=== PATIENT | male | born 1970 | race Caucasian/White ===

== ENCOUNTER 2016-11-09 18:16 | Emergency (ER) | payer OTHER ==
[~2016-11-09] VITALS: Ht 177.8 cm; Wt 80.3 kg
[2016-11-09 19:30] LABS: HEMATOCRIT 47.5 % (38.0-50.0); MCH 28.9 PG (29.0-34.0); MCHC 33.1 G/DL (30.0-36.0); MCV 87.5 FL (86-99); MEAN PLAT.VOLUME 9.8 uM^3 (9.0-12.4); PLATELET COUNT 249 K/uL (156-360); RBC DIS.WIDTH-CV 12.3 % (11.8-14.6); RBC DIS.WIDTH-SD 39.8 % (39-53); RED BLOOD COUNT 5.43 M/uL (4.00-5.50); WHITE BLOOD COUNT 7.5 K/uL (4.1-10.2)
[2016-11-09 19:38] LABS: CHLORIDE 105 mEq/L (99-109); POTASSIUM 4.2 mEq/L (3.7-5.4); SODIUM 141 mEq/L (136-147)
[2016-11-09 19:40] LABS: GLUCOSE 97 mg/dL (70-99)
[2016-11-09 19:41] LABS: ANION GAP 9 MEQ/L (2-14)
[2016-11-09 19:42] LABS: TOTAL BILIRUBIN 0.4 mg/dL (0.0-1.0)
[2016-11-09 19:43] LABS: SERUM ETHYL ALCOHOL < 10 mg/dL
[2016-11-09 19:44] LABS: ALKALINE PHOSPHATASE 48 IU/L (3-129); GFR ESTIMATE (CALCULATED) > 59 mL/min/
[2016-11-09 19:45] LABS: UREA NITROGEN (BUN) 15 mg/dL (9-23)
[2016-11-09 21:31] VITALS: BP 129/76
== END 2016-11-09 21:31 | disposition home or self-care (01) ==
LOC: EME 18:16
PROVIDERS: Emergency Medicine
DX: F32.9 Major depressive disorder, single episode, unspecified (principal); F17.200 Nicotine dependence, unspecified, uncomplicated
CPT/HCPCS: 80053; 81003; 85027; 90839; 99281; 99285; G0480